=== PATIENT | female | born 2000 | race Asian ===

== ENCOUNTER 2024-02-14 09:50 | Outpatient (CLI) | payer OTHER, SELFPAY | END 2024-02-14 09:51 | disposition home or self-care (01) | LOC: NFLDREF 02-23 07:54 | PROVIDERS: Visit Provider Obstetrics & Gynecology | DX: Z11.3 Encounter for screening for infections with a predominantly sexual mode of transmission (principal) | CPT/HCPCS: 87491; 87591 ==